=== PATIENT | male | born 1955 | race Two or more races ===

== ENCOUNTER 2019-07-13 22:45 | Emergency (ER) | payer BC ==
[~2019-07-13] VITALS: Ht 170.2 cm; Wt 79.8 kg
--- NOTE | 2019-07-13 22:45 | NUR ---
PT IBETH Flores SYNCOPAL EPISODE X2 AT HOME. +N/V. PT ON MONITOR IN BED 2. NAD NOTED. NO PAIN AT THIS TIME. FAMILY AT BEDSIDE. WILL CONTINUE TO MONITOR.
--- NOTE | 2019-07-13 22:53 | NUR ---
TECH AT BEDSIDE FOR EKG
--- NOTE | 2019-07-13 23:15 | NUR ---
PT VOMITTED. MD AWARE.
[2019-07-13] MEDS ORDERED: ONDANSETRON HCL/PF 4 MG/2 ML VIAL ONE (23:17)
[2019-07-13 23:29] VITALS: BP 129/75
--- NOTE | 2019-07-14 00:25 | NUR ---
PHLEB AT BEDSIDE FOR BLOOD DRAW
[2019-07-14 00:36] LABS: BASOPHILS # (AUTO) 0.1 /CMM (0.0-0.2); BASOPHILS % (AUTO) 0.6 % (0.0-2.0); EOSINOPHILS % (AUTO) 0.8 % (0.0-6.0); HEMATOCRIT 46 % (39-51); HEMOGLOBIN 15.3 g/dL (13.5-17.5); LYMPHOCYTES # (AUTO) 1.6 /CMM (0.8-4.8); LYMPHOCYTES % (AUTO) 16.1 % (20.0-44.0); MEAN CORPUSCULAR HGB CONC 33 g/dl (31.0-36.0); MEAN CORPUSCULAR VOLUME 89 fL (80-96); MONOCYTES # (AUTO) 0.7 /CMM (0.1-1.30); NEUTROPHILS # (AUTO) 7.6 /CMM (1.8-8.9); NEUTROPHILS % (AUTO) 75.5 % (43.0-81.0); PLATELET COUNT (AUTO) 218 /CMM (150-450); RED BLOOD CELL COUNT(AUTO) 5.14 MIL/uL (4.5-6.0)
[2019-07-14 00:45] LABS: CALCIUM, SERUM 8.6 mg/dL (8.5-10.1); CARBON DIOXIDE 28 mmol/L (21-32); CHLORIDE 104 mmol/L (98-107); CREATININE 1.2 mg/dL (0.6-1.3); GLUCOSE 128 mg/dL (74-106); POTASSIUM 3.9 mmol/L (3.5-5.1); SODIUM SERUM 140 mmol/L (136-145); UREA NITROGEN, BLOOD 19 mg/dL (7-18)
--- NOTE | 2019-07-14 01:40 | NUR ---
IV removed. Catheter intact and site benign. Pressure and 4x4 applied to site. No bleeding noted.Patient discharged to home in stable condition. Written and verbal after care instructions given. Patient verbalizes understanding of instruction.
[2019-07-14] MEDS ORDERED: ONDANSETRON HCL/PF - ER 4 MG/2 ML VIAL IM ONE (03:00)
== END 2019-07-14 01:59 | disposition home or self-care (01) ==
LOC: ER 22:51
DX: R55 Syncope and collapse (principal)
CPT/HCPCS: 36415; 80048; 84484; 85025; 93005; 96372; 99284; J2405